=== PATIENT | male | born 2000 | race Caucasian/White ===

== ENCOUNTER 2019-03-20 11:35 | Emergency (ER) | payer OTHER ==
[2019-03-20 11:47] VITALS: BP 120/85; PULSE 69; TEMP 98.4; BMI 25.8
--- NOTE | 2019-03-20 11:49 | PDOC ---
History of Present Illness - General Chief Complaint: Injury Stated Complaint: RIGHT 5TH TOE PAIN Time Seen by Provider: 03/20/19 11:49 Past History - Past Medical History Allergies/Adverse Reactions: Allergies Allergy/AdvReac Type Severity Reaction Status Date / Time No Known Allergies Allergy Verified 03/20/19 11:39 Home Medications: Ambulatory Orders NK [No Known Home Medication] 03/20/19 COPD: No Other medical history: DENIES - Psycho Social/Smoking Cessation Hx Smoking History: Never smoked Have you smoked in the past 12 months: No Information on smoking cessation initiated: No Hx Alcohol Use: No *Physical Exam - Vital Signs Last Vital Signs Temp Pulse Resp BP Pulse Ox 98.4 F 69 18 120/85 100 03/20/19 11:35 03/20/19 11:35 03/20/19 11:35 03/20/19 11:35 03/20/19 11:35 Discharge - Discharge Information Problems reviewed: Yes Clinical Impression/Diagnosis: Toe pain Qualifiers: Laterality: right Qualified Code(s): M79.674 - Pain in right toe(s) Condition: Good Disposition: HOME - Admission No - Follow up/Referral Referrals: Keyla Minor DPM [Non Staff, Medical] - - Patient Discharge Instructions Patient Printed Discharge Instructions: DI for Calluses and Corns Additional Instructions: you came to the Ed for pain in your little toe. I don't see evidence of infection, but you do have callus there. you can use bandages to help cushion the area when you wear shoes, so it doesn't hurt. Return to the Ed for fever, worsening pain and swelling, other new or worsening symptoms. Follow up with podiatry. - Post Discharge Activity
== END 2019-03-20 12:18 | disposition home or self-care (01) ==
LOC: FER 11:35
DX: M79.674 Pain in right toe(s) (principal)
CPT/HCPCS: 99281-25

== ENCOUNTER 2019-03-22 10:42 | Emergency (ER) | payer OTHER ==
[2019-03-22 10:52] VITALS: BP 148/82; PULSE 92; TEMP 98.6; BMI 25.8
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
== END 2019-03-22 11:16 | disposition home or self-care (01) ==
LOC: FER 10:42
DX: B35.3 Tinea pedis (principal); S93.509A Unspecified sprain of unspecified toe(s), initial encounter; X58.XXXA Exposure to other specified factors, initial encounter; Y93.89 Activity, other specified; Y92.89 Other specified places as the place of occurrence of the external cause
CPT/HCPCS: 99282-25